=== PATIENT | male | born 1990 | race African-American/Black ===

== ENCOUNTER 2019-04-18 19:42 | Emergency (ER) | payer MEDICAID ==
[~2019-04-18] VITALS: Ht 175.3 cm; Wt 100.0 kg
[2019-04-18 21:25] VITALS: BP 129/87
[2019-04-18] MEDS ORDERED: IBUPROFEN 600 MG TABLET PO ONE (22:00)
[2019-04-18] MEDS ORDERED: CYCLOBENZAPRINE HCL 10 MG TABLET PO ONE (22:00)
== END 2019-04-18 22:47 | disposition home or self-care (01) ==
LOC: EMS 19:43
DX: M54.5 Low back pain (principal); F12.90 Cannabis use, unspecified, uncomplicated; V49.9XXA Car occupant (driver) (passenger) injured in unspecified traffic accident, initial encounter; Y93.89 Activity, other specified; Y92.488 Other paved roadways as the place of occurrence of the external cause; Y99.8 Other external cause status